=== PATIENT | male | born 2005 | race Caucasian/White ===

== ENCOUNTER 2025-08-06 11:34 | Inpatient (IN) ==
[2025-08-06 13:46] LABS: Appearance Urine Clear (Clear); Glucose Urine UA Negative (Negative)
--- NOTE | 2025-08-06 13:57 | Emergency Department Note ---
Impression & Plan Influenza, Adrenal insufficiency, Acute viral bronchiolitis ED Provider Note NAME: ALEJANDRO GORDILLO AGE: 19 SEX: M : 2005 ARRIVES VIA: Walk-In INFORMANT: Patient ED PROVIDER(S): Jaren Jackman MD CHIEF COMPLAINT: Cough, low oxygen, flu, referred PLAN: Disposition: Admit MEDICAL DECISION MAKING: The patient is a pleasant 19-year-old gentleman, [employer] college student, with past medical history of adrenal insufficiency on chronic hydrocortisone, history of IgA deficiency, POTS who presents to the emergency department via walk-in referred by urgent care after he was seen for reassessment and found to have low oxygen with saturation 91% on room air in the setting of being diagnosed with influenza A approximately a week ago. The patient had been on Tamiflu and was seen in the emergency department on 08/02 for intractable nausea and vomiting. The patient was stabilized and has continued his stress dose steroids. However symptoms have not been improving. He reports nausea but has not had returned of vomiting. He denies diarrhea. He denies chest pain. He reports persistent postnasal drip. Of note, the patient did arrive to emergency department during time of high volume, acuity and prolonged emergency department waiting times. Critical pathways initiated. On evaluation the patient is uncomfortable but no distress, afebrile stable vital signs. O2 saturation 93% on room air. He appears clinically dry. Exhibits boggy nasal turbinates. He exhibits injection without edema the posterior pharynx. No exudates. Lungs with scant intermittent wheeze and are otherwise clear. Chest x-ray was performed and did not demonstrate evidence of pneumonia. Peribronchial thickening suggestive of viral bronchiolitis or reactive airway disease is noted. WBC 11.2 K with neutrophilia but no left shift, nonspecific. H/H and platelets within limits. Chemistry without metabolic acidosis. LFTs unremarkable. Procalcitonin is not elevated. UA without evidence of infection. Patient was treated with IV fluid hydration with 2 L normal saline. 100 mg of stress dose hydrocortisone also administered. DuoNeb and guaifenesin also provided. Given the persistence of the patient's symptoms with mild improvement in the setting of the patient's immunocompromise status with adrenal insufficiency patient and mother (over the phone) agree with plan for admission for further management. Case was discussed with Lenora Arias [facility], with Dr. Aj, [facility] hospitalist who will evaluate the patient for admission. Further management per admitting team. Triage Nursing notes reviewed and agree them. Prior/external medical records reviewed Vital Signs: reviewed Differential diagnosis: Viral syndrome, otitis, pharyngitis, pneumonia, influenza, meningitis, urinary tract infection, sepsis, bacteremia, as well as other pathologies. ER treatment provided: See below. Diagnostics interpreted by me: Cardiac Monitoring: An order for continuous cardiac monitoring was placed and demonstrated normal sinus rhythm, 69 bpm, no ectopy. Laboratory studies: See below Imaging studies: See below Consultation(s): Case was discussed with Lenora Arias [facility], with Dr. Aj, [facility] hospitalist who will evaluate the patient for admission. HPI: Per MDM. ROS: See above HPI for pertinent positives & negatives. A total of 10 systems reviewed and were otherwise negative. VITALS:See Below PHYSICAL EXAMINATION: GENERAL: Awake, alert, uncomfortable-appearing, in no distress HENT: Normocephalic, atraumatic. Boggy nasal turbinates. Oropharynx with injection without edema of the posterior pharynx. No exudates. Dry mucous membranes. EYES: Normal conjunctiva. Sclera non-icteric. NECK: Supple. No nuchal rigidity. FROM. No JVD. RESPIRATORY: Intermittent wheeze bilaterally and otherwise clear to auscultation. CARDIAC: Regular rate, normal rhythm. Extremities warm and well perfused. Pulses equal. ABDOMEN: Soft, non-distended. No tenderness to palpation. No rebound or guarding. No masses. MUSCULOSKELETAL: Chest examination reveals no tenderness. The back is symmetrical on inspection without obvious abnormality. There is no CVA tenderness to palpation. No joint edema. LOWER EXTREMITIES: Calves are equal size bilaterally and non-tender. No edema. No discoloration. NEURO: Normal sensorium. No sensory or motor deficits noted. SKIN: No rash or jaundice noted. Jaren Jackman MD Past Med/Surg History Problem List (Updated 08/06/25 @ 22:24 by Jaren Jackman MD) Acute viral bronchiolitis (Acute) Adrenal insufficiency (Acute) Post-tussive emesis (Acute) Influenza (Acute) Medical History IgA deficiency Social History Smoking Status: Never smoker Hx Alcohol Use: No Hx Substance Use: No Preferred Language: [place] Communication Ability: Effective Machine Installer Required: No Beliefs That Will Affect Care: None Current Living Situation: Alone Current Living Situation Comment: julien, [employer] student Other Information That Helps Us Care for You: No Feels Safe at Home: Yes Assistive Devices: Glasses Allergies Allergies Allergy/AdvReac Type Severity Reaction Status Date / Time metoclopramide [From Reglan] AdvReac Intermediate AGGRESSIVE Verified 08/03/25 00:21 sulfamethoxazole AdvReac Intermediate Vomiting Verified 08/03/25 00:21 [From Bactrim] trimethoprim [From Bactrim] AdvReac Intermediate Vomiting Verified 08/03/25 00:21 Home Meds Home Medications Medication Instructions Recorded Confirmed Ketotifen Capsule 1 mg PO DIRECTED 08/03/25 08/06/25 Vessel Health Guard 1 tab PO 2XWK 08/03/25 08/06/25 biotin 5,000 mcg disintegrating 5,000 mcg PO QDL 08/03/25 08/06/25 tablet cholecalciferol (vitamin D3) 125 125 mcg PO 3XWK 08/03/25 08/06/25 mcg (5,000 unit) tablet (Vitamin D3) finasteride 1 mg tablet 1 mg PO HS 08/03/25 08/06/25 fluvoxamine 100 mg tablet 100 mg PO QAM 08/03/25 08/06/25 hydrocortisone 10 mg tablet 0 mg PO DIRECTED 08/03/25 08/06/25 hydrocortisone 20 mg tablet 30 mg PO Q8H PRN STRESS DOSE 08/03/25 08/06/25 hydrocortisone sod succinate 100 100 mg IM DAILY PRN IF UNABLE TO 08/03/25 08/06/25 mg solution for injection TAKE STRESS DOSE, GO TO ER (Solu-Cortef) iron,carbonyl 65 mg-vitamin C 125 1 tab PO 3XWK 08/03/25 08/06/25 mg tablet,delayed release (Vitron-C) ivabradine 5 mg tablet 5 mg PO QAM 08/03/25 08/06/25 methylphenidate HCl 20 mg tablet 15 mg PO BID 08/03/25 08/06/25 ondansetron 8 mg disintegrating 8 mg PO DIRECTED PRN 08/03/25 08/06/25 tablet NAUSEA/VOMITING oseltamivir 75 mg capsule 75 mg PO BID 08/03/25 08/06/25 oxymetazoline 0.05 % nasal spray 2 - 4 spray intranasal DIRECTED 08/03/25 08/06/25 (Afrin (oxymetazoline)) PRN NOSE BLEEDS testosterone enanthate 100 mg/0.5 100 mg subcut WK 08/03/25 08/06/25 mL subcutaneous auto-injector (Xyosted) trazodone 50 mg tablet 50 mg PO HS PRN Sleep 08/03/25 08/06/25 famotidine 20 mg tablet 20 mg PO BID 08/06/25 08/06/25 Previous Rx's Medication Instructions Recorded hydrocodone-homatropine 5 mg-1.5 5 ml PO Q6H PRN cough #200 mL 08/03/25 mg/5 mL (5 mL) oral solution (Hycodan) Results & Data (ED) Vital Signs Vital Signs - 24 hr 08/06/25 11:43 08/06/25 12:50 08/06/25 12:50 Temperature 36.7 C Temperature Source Oral Pulse Rate 69 Pulse Rate [Right Finger] Pulse Rate from SpO2 Sensor Pulse Rhythm [Right Finger] Pulse Strength [Right Finger] Respiratory Rate 18 Respiratory Effort / Characteristics Respiratory Depth Normal Respiratory Pattern Blood Pressure 131/78 152/84 H 152/84 H Blood Pressure [Right Arm] Blood Pressure Mean 95 103 103 Blood Pressure Mean [Right Arm] Blood Pressure Position [Right Arm] Pulse Oximetry 93 Oxygen Delivery Method Room Air Sepsis Recent Fever Within 48 Hours No Sepsis New/Unexplained Change in Mental Status No Sepsis Action Taken by Nursing No Action Required 08/06/25 12:54 08/06/25 13:09 08/06/25 13:15 Temperature Temperature Source Pulse Rate 58 L 53 L 54 L Pulse Rate [Right Finger] Pulse Rate from SpO2 Sensor 59 L 52 L 54 L Pulse Rhythm [Right Finger] Pulse Strength [Right Finger] Respiratory Rate 16 22 22 Respiratory Effort / Characteristics Respiratory Depth Respiratory Pattern Blood Pressure Blood Pressure [Right Arm] Blood Pressure Mean Blood Pressure Mean [Right Arm] Blood Pressure Position [Right Arm] Pulse Oximetry 92 94 94 Oxygen Delivery Method Sepsis Recent Fever Within 48 Hours Sepsis New/Unexplained Change in Mental Status Sepsis Action Taken by Nursing 08/06/25 13:21 08/06/25 13:22 08/06/25 13:30 Temperature Temperature Source Pulse Rate 57 L Pulse Rate [Right Finger] 54 L Pulse Rate from SpO2 Sensor 56 L Pulse Rhythm [Right Finger] Regular Pulse Strength [Right Finger] Normal Respiratory Rate 19 19 Respiratory Effort / Characteristics Non-Labored Spontaneous Respiratory Depth Normal Respiratory Pattern Regular Blood Pressure 164/92 H Blood Pressure [Right Arm] 152/84 H Blood Pressure Mean 107 Blood Pressure Mean [Right Arm] 106 Blood Pressure Position [Right Arm] Lying Pulse Oximetry 94 93 Oxygen Delivery Method Room Air Sepsis Recent Fever Within 48 Hours Sepsis New/Unexplained Change in Mental Status Sepsis Action Taken by Nursing 08/06/25 13:30 08/06/25 13:30 08/06/25 13:30 Temperature Temperature Source Pulse Rate 54 L Pulse Rate [Right Finger] Pulse Rate from SpO2 Sensor 53 L Pulse Rhythm [Right Finger] Pulse Strength [Right Finger] Respiratory Rate 17 Respiratory Effort / Characteristics Respiratory Depth Respiratory Pattern Blood Pressure 164/92 H 164/92 H Blood Pressure [Right Arm] Blood Pressure Mean 107 107 Blood Pressure Mean [Right Arm] Blood Pressure Position [Right Arm] Pulse Oximetry 94 Oxygen Delivery Method Sepsis Recent Fever Within 48 Hours Sepsis New/Unexplained Change in Mental Status Sepsis Action Taken by Nursing 08/06/25 14:00 08/06/25 14:00 08/06/25 14:12 Temperature Temperature Source Pulse Rate 55 L 58 L Pulse Rate [Right Finger] Pulse Rate from SpO2 Sensor 55 L 59 L Pulse Rhythm [Right Finger] Pulse Strength [Right Finger] Respiratory Rate 21 16 Respiratory Effort / Characteristics Respiratory Depth Respiratory Pattern Blood Pressure 157/92 H Blood Pressure [Right Arm] Blood Pressure Mean 119 Blood Pressure Mean [Right Arm] Blood Pressure Position [Right Arm] Pulse Oximetry 95 96 Oxygen Delivery Method Sepsis Recent Fever Within 48 Hours Sepsis New/Unexplained Change in Mental Status Sepsis Action Taken by Nursing 08/06/25 14:18 08/06/25 14:21 08/06/25 14:30 Temperature Temperature Source Pulse Rate 54 L 67 Pulse Rate [Right Finger] Pulse Rate from SpO2 Sensor 54 L Pulse Rhythm [Right Finger] Pulse Strength [Right Finger] Respiratory Rate 19 Respiratory Effort / Characteristics Respiratory Depth Respiratory Pattern Blood Pressure 168/83 H Blood Pressure [Right Arm] Blood Pressure Mean 112 Blood Pressure Mean [Right Arm] Blood Pressure Position [Right Arm] Pulse Oximetry 100 Oxygen Delivery Method Sepsis Recent Fever Within 48 Hours Sepsis New/Unexplained Change in Mental Status Sepsis Action Taken by Nursing 08/06/25 14:30 08/06/25 14:33 08/06/25 15:00 Temperature Temperature Source Pulse Rate 80 Pulse Rate [Right Finger] 55 L Pulse Rate from SpO2 Sensor 74 Pulse Rhythm [Right Finger] Regular Pulse Strength [Right Finger] Normal Respiratory Rate 20 20 Respiratory Effort / Characteristics Non-Labored Spontaneous Respiratory Depth Normal Respiratory Pattern Regular Blood Pressure 168/83 H Blood Pressure [Right Arm] 177/95 H Blood Pressure Mean 112 Blood Pressure Mean [Right Arm] 122 Blood Pressure Position [Right Arm] Lying Pulse Oximetry 95 95 Oxygen Delivery Method Room Air Sepsis Recent Fever Within 48 Hours Sepsis New/Unexplained Change in Mental Status Sepsis Action Taken by Nursing 08/06/25 15:09 08/06/25 15:21 08/06/25 15:30 Temperature Temperature Source Pulse Rate Pulse Rate [Right Finger] Pulse Rate from SpO2 Sensor 65 74 54 L Pulse Rhythm [Right Finger] Pulse Strength [Right Finger] Respiratory Rate Respiratory Effort / Characteristics Respiratory Depth Respiratory Pattern Blood Pressure Blood Pressure [Right Arm] Blood Pressure Mean Blood Pressure Mean [Right Arm] Blood Pressure Position [Right Arm] Pulse Oximetry 98 96 95 Oxygen Delivery Method Sepsis Recent Fever Within 48 Hours Sepsis New/Unexplained Change in Mental Status Sepsis Action Taken by Nursing 08/06/25 15:30 08/06/25 15:30 08/06/25 15:30 Temperature Temperature Source Pulse Rate Pulse Rate [Right Finger] Pulse Rate from SpO2 Sensor Pulse Rhythm [Right Finger] Pulse Strength [Right Finger] Respiratory Rate Respiratory Effort / Characteristics Respiratory Depth Respiratory Pattern Blood Pressure 177/95 H 177/95 H 177/95 H Blood Pressure [Right Arm] Blood Pressure Mean 111 111 111 Blood Pressure Mean [Right Arm] Blood Pressure Position [Right Arm] Pulse Oximetry Oxygen Delivery Method Sepsis Recent Fever Within 48 Hours Sepsis New/Unexplained Change in Mental Status Sepsis Action Taken by Nursing 08/06/25 15:30 08/06/25 15:45 08/06/25 16:08 Temperature Temperature Source Pulse Rate Pulse Rate [Right Finger] 54 L Pulse Rate from SpO2 Sensor 55 L Pulse Rhythm [Right Finger] Pulse Strength [Right Finger] Respiratory Rate 16 Respiratory Effort / Characteristics Non-Labored Spontaneous Respiratory Depth Normal Respiratory Pattern Blood Pressure 177/95 H Blood Pressure [Right Arm] 160/82 H Blood Pressure Mean 111 Blood Pressure Mean [Right Arm] 108 Blood Pressure Position [Right Arm] Pulse Oximetry 96 Oxygen Delivery Method Sepsis Recent Fever Within 48 Hours Sepsis New/Unexplained Change in Mental Status Sepsis Action Taken by Nursing Laboratory Data Attestation: I reviewed the patient's lab results. 08/06/25 13:40 08/06/25 13:40 Lab Results 08/06/25 08/06/25 Range/Units 13:00 13:40 WBC 11.25 H (4.8-10.8) K/ul RBC 5.34 (4.70-6.10) M/uL Hgb 14.7 (14.0-18.0) g/dl Hct 44.2 (42.0-52.0) % MCV 82.8 (80.0-100.0) fL MCH 27.5 (25.0-34.0) pg MCHC 33.3 (32.0-36.0) g/dL RDW Std Deviation 38.3 (36.4-46.3) fL RDW Coeff of Josué 12.8 (11.5-14.5) % Plt Count 237 (130-400) K/uL MPV 11.1 (9.4-12.4) fL Immature Gran % (Auto) 1.4 % Neut % (Auto) 74.3 % Lymph % (Auto) 14.1 % [place] % (Auto) 9.9 % Eos % (Auto) 0.1 % Baso % (Auto) 0.2 % Neut # (Auto) 8.36 H (1.40-6.50) K/uL Lymph # (Auto) 1.59 (1.20-3.40) K/uL [place] # (Auto) 1.11 H (0.11-0.59) K/uL Eos # (Auto) 0.01 (0.00-0.50) K/uL Baso # (Auto) 0.02 (0.00-0.20) K/uL Immature Gran # (Auto) 0.16 (0.01-0.20) K/uL Sodium 141 (136-145) mmol/L Potassium 4.2 (3.5-5.1) mmol/L Chloride 104 (98-107) mmol/L Carbon Dioxide 31 (21-32) mmol/L Anion Gap 6 (3-11) BUN 9 (6-23) mg/dl Creatinine 0.95 (0.6-1.4) mg/dl Est Cr Clr Drug Dosing 157.6 ml/min eGFR 118.25 BUN/Creatinine Ratio 9.5 L (10-20) Glucose 100 H (70-99(Fasting)) mg/dl Calcium 9.4 (8.6-10.3) mg/dl Total Bilirubin 0.5 (0.2-1.0) mg/dl AST 12 L (13-39) U/L ALT 11 (7-52) U/L Alkaline Phosphatase 54 (34-104) U/L Total Protein 7.3 (6.0-8.3) gm/dl Albumin 4.3 (3.4-5.0) gm/dl Globulin 3.0 (2.5-4.0) gm/dl Albumin/Globulin Ratio 1.4 (0.9-2) Procalcitonin 0.03 (0-0.5) ng/ml Urine Color Yellow Urine Appearance Clear (Clear) Urine pH 8.0 H (4.5-7.5) Ur Specific [place] 1.006 (1.000-1.030) Urine Protein Negative (Negative) Urine Glucose (UA) Negative (Negative) Urine Ketones Negative (Negative) Urine Blood Negative (Negative) Urine Nitrite Negative (Negative) Urine Bilirubin Negative (Negative) Urine Urobilinogen Negative (Negative) Ur Leukocyte Esterase Negative (Negative) Urine Comment Administered Medications Albuterol (Albut/Ipratrop 3mg/0.5mg Neb 3 Ml Vial) 3 ml NEB Q4R [facility]; Protocol Stop: 09/05/25 20:07 Last Admin: 08/06/25 21:41 Dose: 3 ml Documented By: LEN Ascorbic Acid (Ascorbic Acid 500 Mg Tab) 250 mg PO MoWeFr@2100 [facility] Stop: 09/05/25 20:59 Last Admin: 08/06/25 21:28 Dose: 250 mg Documented By: ATS Benzonatate (Benzonatate 100 Mg Capsule) 100 mg PO TID [facility] Stop: 09/05/25 20:59 Last Admin: 08/06/25 21:27 Dose: 100 mg Documented By: ATS Famotidine (Famotidine 20 Mg Tab) 20 mg PO BID [facility] Stop: 09/05/25 20:59 Last Admin: 08/06/25 21:27 Dose: 20 mg Documented By: ATS Ferrous Sulfate (Ferrous Sulfate 325 Mg Tab) 325 mg PO MoWeFr@2100 [facility] Stop: 09/05/25 20:59 Last Admin: 08/06/25 21:28 Dose: 325 mg Documented By: VASYL Guaifenesin (Guaifenesin 600 Mg Tabcr) 1,200 mg PO Q12 [facility] Stop: 09/05/25 20:59 Last Admin: 08/06/25 21:28 Dose: 1,200 mg Documented By: ATS Sodium Chloride (Nss) 1,000 mls @ 125 mls/hr IV .Q8H MAYANK Stop: 08/07/25 12:07 Last Admin: 08/06/25 20:30 Dose: 125 mls/hr Documented By: VASYL Hydrocortisone Sodium (Succinate 50 mg/ Syringe) 1 mls @ 4 mls/min IV Q6H MAYANK Stop: 09/05/25 20:14 Last Admin: 08/06/25 21:27 Dose: 4 mls/min Documented By: VASYL Finasteride 1 Mg: Non-Formulary Patient's Own Med 1 each PO HS MAYANK Stop: 09/05/25 20:59 Last Admin: 08/06/25 21:30 Dose: 1 mg Documented By: VASYL Ketotifen: Non- Formulary Patient's Own Med 2 each PO HS MAYANK Stop: 09/05/25 20:59 Last Admin: 08/06/25 21:29 Dose: 2 mg Documented By: VASYL Trazodone HCl (Trazodone Hcl 50 Mg Tab) 50 mg PO HS PRN PRN Reason: Sleep Stop: 09/05/25 16:41 Last Admin: 08/06/25 21:32 Dose: 50 mg Documented By: VASYL Vitamin D (Cholecalciferol 125 Mcg (5,000 Units) Tab) 125 mcg PO MoWeFr@1130 [facility]ANK Stop: 09/05/25 16:44 Last Admin: 08/06/25 18:06 Dose: 125 mcg Documented By: mls Discontinued Medications Albuterol (Albut/Ipratrop 3mg/0.5mg Neb 3 Ml Vial) 3 ml NEB NOW STA; Protocol Stop: 08/06/25 13:56 Last Admin: 08/06/25 14:08 Dose: 3 ml Documented By: jose Guaifenesin (Guaifenesin 600 Mg Tabcr) 1,200 mg PO NOW STA Stop: 08/06/25 13:54 Last Admin: 08/06/25 14:07 Dose: 1,200 mg Documented By: jose Hydrocortisone Sodium Succinate (Hydrocortisone Sod Succinate 100 Mg/2 Ml Vial) 100 mg IV NOW STA Stop: 08/06/25 13:56 Last Admin: 08/06/25 14:07 Dose: 100 mg Documented By: jose Sodium Chloride (Nss) 1,000 mls @ 999 mls/hr IV .Q1H1M MAYANK Stop: 08/06/25 16:00 Last Infusion: 08/06/25 16:17 Dose: Infused Documented By: river Admin: 08/06/25 15:13 Dose: 999 mls/hr Documented By: jose Infusion: 08/06/25 15:09 Dose: Infused Documented By: jose Admin: 08/06/25 14:08 Dose: 999 mls/hr Documented By: jose Acetaminophen (Ofirmev) 1,000 mg in 100 mls @ 400 mls/hr IV NOW STA Stop: 08/06/25 14:07 Last Infusion: 08/06/25 14:30 Dose: Infused Documented By: jose Admin: 08/06/25 14:07 Dose: 400 mls/hr Documented By: jose Ketorolac Tromethamine (Ketorolac Tromethamine 15 Mg/Ml Vial) 15 mg IV NOW STA Stop: 08/06/25 13:54 Last Admin: 08/06/25 14:07 Dose: 15 mg Documented By: jose Sodium Chloride (Sodium Chloride 0.65% Na Soln 45 Ml ([place])) 2 sprays NA NOW ONE Stop: 08/06/25 13:54 Last Admin: 08/06/25 14:07 Dose: 2 sprays Documented By: jose Imaging Data Radiologist's Impression: Chest X-Ray 08/06/25 12:31 XR chest 2V PA/lateral CLINICAL HISTORY: Influenza, hypoxemia COMPARISON STUDY: 08/03/2025 FINDINGS: Heart size and pulmonary vasculature are normal. No consolidation or pleural effusion. No pneumothorax. Stable mild scoliosis. There is mild peribronchial thickening. IMPRESSION: 1. No pneumonia seen. 2. Peribronchial thickening can be seen with viral bronchiolitis or reactive airway disease. ACT 112: Negative or not required by law. Electronically signed by: Devon Jiménez M.D. 08/06/2025 2:55 PM Discharge Plan Visit Data Chief Complaint: Flu Like Symptoms Stated Complaint: LOW O2, FLU X8 DAYS, COUGH, REF BY URGENT CARE ED Provider: Jaren Jackman Discharge Problem: Influenza, Adrenal insufficiency, Acute viral bronchiolitis Patient Disposition: Admitted As Inpatient Condition: Fair Discharge Instructions Interventions: ED Discharge Assessment Last Done: 08/06/25 19:46
[2025-08-06] MEDS: SODIUM CHLORIDE 0.65% NA SOLN 45 ML (OCEAN) ONE (14:07)
[2025-08-06] MEDS: HYDROCORTISONE SOD SUCCINATE 100 MG/2 ML VIAL IV STA (14:07)
[2025-08-06] MEDS: guaiFENesin 600 MG TABCR PO STA (14:07)
[2025-08-06] MEDS: KETOROLAC TROMETHAMINE 15 MG/ML VIAL IV STA (14:07)
[2025-08-06] MEDS: ACETAMINOPHEN 1,000 MG/100 ML VIAL IV STA (14:07)
[2025-08-06] MEDS: ALBUT/IPRATROP 3MG/0.5MG NEB 3 ML VIAL NEB STA (14:08)
[2025-08-06] MEDS: SODIUM CHLORIDE 0.9% 1,000 ML IV SCH ×2 (14:08→20:30)
[2025-08-06 14:19] LABS: Alanine Aminotransferase 11.0 U/L (7-52); Albumin Globulin Ratio 1.4 (0.9-2); Albumin Level 4.3 gm/dl (3.4-5.0); Alkaline Phosphatase 54.0 U/L (34-104); Anion Gap 6.0 (3-11); Bilirubin,Total 0.5 mg/dl (0.2-1.0); Blood Urea Nitrogen 9.0 mg/dl (6-23); Calcium 9.4 mg/dl (8.6-10.3); Carbon Dioxide 31.0 mmol/L (21-32); Chloride 104.0 mmol/L (98-107); Creatinine Clr Calc Pharmacy 157.6 ml/min; Globulin 3.0 gm/dl (2.5-4.0); Glucose 100.0 mg/dl (70-99(Fasting)); Hematocrit (blood only) 44.2 % (42.0-52.0); Hemoglobin 14.7 g/dl (14.0-18.0); Immature Granulocytes # (auto) 0.16 K/uL (0.01-0.20); Immature Granulocytes % (auto) 1.4 %; Mean Corpuscular Hemoglobin 27.5 pg (25.0-34.0); Mean Corpuscular Volume 82.8 fL (80.0-100.0); Platelet Count 237 K/uL (130-400); Potassium 4.2 mmol/L (3.5-5.1); RDW Standard Deviation 38.3 fL (36.4-46.3); Red Blood Count 5.34 M/uL (4.70-6.10); Sodium 141.0 mmol/L (136-145); Total Protein 7.3 gm/dl (6.0-8.3); White Blood Count 11.25 K/ul (4.8-10.8)
--- NOTE | 2025-08-06 14:56 | XRay Report ---
XR chest 2V PA/lateral CLINICAL HISTORY: Influenza, hypoxemia COMPARISON STUDY: 08/03/2025 FINDINGS: Heart size and pulmonary vasculature are normal. No consolidation or pleural effusion. No p neumothorax. Stable mild scoliosis. There is mild peribronchial thickening. IMPRESSION: 1. No pneumonia seen. 2. Peribronchial thickening can be seen with viral bronchiolitis or reactive airway disease. ACT 112: Negative or not required by law. Electronically signed by: Devon Jiménez M.D. 08/06/2025 2:55 PM
--- NOTE | 2025-08-06 16:09 | History & Physical Report ---
Date of Service August 06, 2025 Assessment & Plan (1) Influenza: (2) Adrenal insufficiency: Plan Hernan is a pleasant 19-year-old male with past medical history of recently diagnosed influenza A, adrenal insufficiency, mild IgA deficiency, POTS, mast cell activation syndrome, Klinefelter syndrome, anxiety, depression, and mild cerebral palsy affecting his left foot/ankle. He has had an ongoing illness x 3-4 weeksinitially sinusitis and completed Augmentin course. A few days after finishing his antibiotic, he developed flulike symptoms. Last week he tested positive for influenza A at urgent care and has since finished his course of Tamiflu. He presented to the ED on 08/03 with cough and vomiting and was discharged home with a prescription of Hycodan cough syrup which has significantly helped his cough and allowed him to get some sleep. He return to urgent care on day of admission for ongoing symptoms and was referred back to the ED for low normal oxygen saturations. Given the length of his illness and risk of developing an adrenal crisis, patient was admitted for further supportive care. #Influenza A - tested positive at urgent care about 1 week BLUR[employer] WR[employer], completed course of Tamiflu - CXR on admission with peribronchial thickening consistent with viral bronchiolitis or reactive airway disease. No pneumonia seen - Supportive care with Tylenol as needed for mild pain/fever, Mucinex 1200 mg twice daily, Hycodan 5 mL Q6h PRN cough - DuoNebs Q4R - IV fluid with NSS at maintenance rate x 2 L #Adrenal Insufficiency - hemodynamically stable, no AMS, no hypotension, no recent vomiting, electrolyte and glucose WNL - S/p hydrocortisone 100 mg IV bolus and 1 L NSS bolus in ED - Continue with hydrocortisone 50 mg IV Q6h for now. Can taper to 2-3 x usual oral dose (hydrocortisone 17.5 mg QAM and 7.5 mg in afternoon), then return to maintenance over 2-3 days - Continue with NSS at maintenance rate x 2 L #Anxiety/depressioncontinue fluvoxamine 100 mg daily #POTScontinue Ivabradine 5 mg daily, methylphenidate 15 mg BID #Vitamin D deficiencycontinue cholecalciferol 120 mcg MWF #Iron deficiencycontinue ferrous sulfate 325 mg MWF #Mast cell activation syndromecontinue ketotifen 1 mg QAM and 2 mg QHS, Pepcid BID #Klinefelter syndromecontinue weekly testosterone injections outpatient on Sundays VTE PPx: low risk, ambulation Dispo: Admit to med/surg Reviewed prior records Updated mother at bedside on admission History of Present Illness Chief Complaint: Flulike symptoms Primary Care Provider: Romel Zhou MD Hernan is a pleasant 19-year-old male with past medical history of recently diagnosed influenza, adrenal insufficiency, IgA deficiency, POTS, mast cell activation syndrome, Klinefelter syndrome, anxiety, depression, and mild cerebral palsy affecting his left foot/ankle. He presented from home with persistent flulike symptoms. At the time of my exam, the patient was lying in bed in no acute distress with his mom present in the room. History is obtained from both patient and his mother. He has had an ongoing illness x 3-4 weeks. Originally started with sinusitis and he completed a course of Augmentin. A few days after finishing this antibiotic, he developed flulike symptoms. He tested positive for influenza A at urgent care last week and has since finished his c ourse of Tamiflu. He presented to the ED on 08/03 with cough and vomiting and was discharged home with recommendation to continue his stress dose steroids, course of Tamiflu, and was prescribed Hycodan to prevent posttussive emesis. Since being discharged from the ED, he has not had any further fever/chills/vomiting. He has been sleeping a lot and reports an improvement with the Hycodan cough syrup - finally has been able to get some sleep. He has ongoing generalized malaise, sore throat, and mild intermittent nausea. His cough was initially dry, but is now intermittently productive with white/yellow sputum. He denies any dyspnea, chest pain, intercostal tenderness, diarrhea, urinary symptoms, joint/body aches. He returned to urgent care today given ongoing symptoms. He had a low normal oxygen saturation of 90% with ambulation and 91-92% at rest so he was referred to the ED. Vitals on admission significant for hypertension with BP 177/95 and mild bradycardia with HR 55; vitals otherwise stable. Labs on admission are significant for mild leukocytosis of 11.25 with neutrophil predominance. Procalcitonin negative at 0.03. Hemoglobin WNL. Electrolytes WNL. Renal function WNL. Liver enzymes WNL. UA negative. CXR on admission reveals peribronchial thickening consistent with viral bronchiolitis or reactive airway disease. No pneumonia seen. We discussed code status, patient wishes to be a full code. Allergies Allergy/AdvReac Type Severity Reaction Status Date / Time metoclopramide [From Reglan] AdvReac Intermediate AGGRESSIVE Verified 08/03/25 00:21 sulfamethoxazole AdvReac Intermediate Vomiting Verified 08/03/25 00:21 [From Bactrim] trimethoprim [From Bactrim] AdvReac Intermediate Vomiting Verified 08/03/25 00:21 Home Medications Medication Instructions Recorded Confirmed Type Ketotifen Capsule 1 mg PO DIRECTED 08/03/25 08/06/25 History Vessel Health Guard 1 tab PO 2XWK 08/03/25 08/06/25 History biotin 5,000 mcg disintegrating 5,000 mcg PO QDL 08/03/25 08/06/25 History tablet cholecalciferol (vitamin D3) 125 125 mcg PO 3XWK 08/03/25 08/06/25 History mcg (5,000 unit) tablet (Vitamin D3) finasteride 1 mg tablet 1 mg PO HS 08/03/25 08/06/25 History fluvoxamine 100 mg tablet 100 mg PO QAM 08/03/25 08/06/25 History hydrocodone-homatropine 5 mg-1.5 5 ml PO Q6H PRN cough #200 mL 08/03/25 08/06/25 Rx mg/5 mL (5 mL) oral solution (Hycodan) hydrocortisone 10 mg tablet 0 mg PO DIRECTED 08/03/25 08/06/25 History hydrocortisone 20 mg tablet 30 mg PO Q8H PRN STRESS DOSE 08/03/25 08/06/25 History hydrocortisone sod succinate 100 100 mg IM DAILY PRN IF UNABLE TO 08/03/25 08/06/25 History mg solution for injection TAKE STRESS DOSE, GO TO ER (Solu-Cortef) iron,carbonyl 65 mg-vitamin C 125 1 tab PO 3XWK 08/03/25 08/06/25 History mg tablet,delayed release (Vitron-C) ivabradine 5 mg tablet 5 mg PO QAM 08/03/25 08/06/25 History methylphenidate HCl 20 mg tablet 15 mg PO BID 08/03/25 08/06/25 History ondansetron 8 mg disintegrating 8 mg PO DIRECTED PRN 08/03/25 08/06/25 History tablet NAUSEA/VOMITING oseltamivir 75 mg capsule 75 mg PO BID 08/03/25 08/06/25 History oxymetazoline 0.05 % nasal spray 2 - 4 spray intranasal DIRECTED 08/03/25 08/06/25 History (Afrin (oxymetazoline)) PRN NOSE BLEEDS testosterone enanthate 100 mg/0.5 100 mg subcut WK 08/03/25 08/06/25 History mL subcutaneous auto-injector (Xyosted) trazodone 50 mg tablet 50 mg PO HS PRN Sleep 08/03/25 08/06/25 History famotidine 20 mg tablet 20 mg PO BID 08/06/25 08/06/25 History Past Med/Surg History Problem List (Updated 08/06/25 @ 15:57 by Lenora Arias PA-C) Adrenal insufficiency Post-tussive emesis (Acute) Influenza (Acute) Social History Smoking Status: Never smoker Preferred Language: [place]an Feels Safe at Home: Yes Review of Systems Review of Systems: All systems reviewed & are unremarkable except as noted in HPI & below Constitutional: + fatigue and + malaise Respiratory: + cough, + sputum production and + probl em reported (sore throat) Physical Exam Physical Exam: General: No acute distress, nondiaphoretic, well-developed, well-nourished. Appears fatigued. Skin: Warm, dry. No rashes or peripheral edema noted. HEENT: PERRLA. Moist mucous membranes. Oropharynx nonerythematous. No tonsillar exudates. Cardiac: Regular rate and rhythm without murmurs gallops or rubs. Pulm: Mild bibasilar rhonchi with faint expiratory wheeze. Clear to auscultation bilaterally in upper lobes. Normal respiratory effort. 96% on room air. Abdominal: Soft, nontender, nondistended. Bowel sounds present. Neuro: A&O x3. No focal neurological deficits. Results & Data Results & Data Vital Signs (Past 12 Hours) Vital Signs Temp Pulse Pulse Resp BP BP Pulse Ox 08/06/25 15:00 55 L 20 177/95 H 95 08/06/25 14:21 67 08/06/25 13:22 54 L 19 152/84 H 93 09/26/25 11:43 98.1 F 69 18 131/78 93 O2 Del Method 08/06/25 15:00 Room Air 08/06/25 14:21 08/06/25 13:22 Room Air 08/06/25 11:43 Room Air Laboratory Results Reviewed CBC with differential Reviewed CMP, chemistries Reviewed UA Diagnostic Findings Reviewed CXR PG Care Time/CCT Total # of Minutes Spent Total Time Spent with Patient: Total time spent is greater than 50% in coordination of care (as documented) at patient's floor/unit and/or counseling patient: Coding Level of Care Code 12386 INT INP/OBS CARE 3/75MIN Diagnoses Influenza J11.1 Adrenal insufficiency E27.40
[2025-08-06] MEDS: CHOLECALCIFEROL 125 MCG (5,000 UNITS) TAB PO SCH (18:06)
[2025-08-06] MEDS ORDERED: MELATONIN 3 MG TAB PO PRN (20:08)
[2025-08-06] MEDS ORDERED: ALUMINUM/MAGNESIUM SUSP 30 ML UDC PO PRN (20:08)
[2025-08-06] MEDS ORDERED: HYDROCORTISONE SOD SUCCINATE 100 MG/2 ML VIAL IV SCH (20:08)
[2025-08-06] MEDS ORDERED: POLYETHYLENE (MIRALAX) 17 GM PACK PO PRN (20:08)
[2025-08-06] MEDS ORDERED: ONDANSETRON INJ 2 MG/ML 2 ML VIAL IV PRN (20:08)
[2025-08-06] MEDS ORDERED: COUGH DROP (SUGAR FREE) LOZ 24 LOZ/1 BOX BUCCAL PRN (20:08)
[2025-08-06] MEDS: HYDROCORTISONE SOD 50 MG in SYRINGE 0 ML IV SCH (21:27)
[2025-08-06] MEDS: FAMOTIDINE 20 MG TAB PO SCH (21:27)
[2025-08-06] MEDS: BENZONATATE 100 MG CAPSULE PO SCH (21:27)
[2025-08-06] MEDS: ASCORBIC ACID 500 MG TAB PO SCH (21:28)
[2025-08-06] MEDS: guaiFENesin 600 MG TABCR PO SCH (21:28)
[2025-08-06] MEDS: FERROUS SULFATE 325 MG TAB PO SCH (21:28)
[2025-08-06] MEDS: KETOTIFEN PO SCH (21:29)
[2025-08-06] MEDS: FINASTERIDE 1 MG PO SCH (21:30)
[2025-08-06] MEDS: ALBUT/IPRATROP 3MG/0.5MG NEB 3 ML VIAL NEB SCH (21:41)
[2025-08-07 00:53] LABS: Influenza A virus by PCR Positive (Neg); Influenza B virus by PCR Negative (Neg); SARS CoV2 RNA(COVID-19) Ceph NEGATIVE (Negative)
[2025-08-07] MEDS ORDERED: Nursing to Pharmacy Communication SCH (06:30)
[2025-08-07] MEDS ORDERED: METHYLPHENIDATE HCL 5 MG TABLET PO SCH (07:00)
[2025-08-07] MEDS: METHYLPHENIDATE HCL 5 MG TABLET PO SCH (08:09)
[2025-08-07] MEDS: KETOTIFEN PO SCH (08:14)
[2025-08-07] MEDS: ACETAMINOPHEN 325 MG TAB PO PRN (08:15)
[2025-08-07 09:05] LABS: Anion Gap 8.0 (3-11); Blood Urea Nitrogen 9.0 mg/dl (6-23); Calcium 8.8 mg/dl (8.6-10.3); Carbon Dioxide 28.0 mmol/L (21-32); Chloride 105.0 mmol/L (98-107); Creatinine Clr Calc Pharmacy 168.2 ml/min; Glucose 154.0 mg/dl (70-99(Fasting)); Magnesium 1.9 mg/dl (1.7-2.4); Potassium 3.4 mmol/L (3.5-5.1); Sodium 141.0 mmol/L (136-145)
[2025-08-07] MEDS: POTASSIUM CHLORIDE CRTAB 20 MEQ TABCR PO SCH (10:12)
[2025-08-07 10:56] LABS: EBV Nuclear Antigen IgG Ab Negative; EBV Nuclear Antigen IgG Quant < 3.0 U/mL (< 18.0)
[2025-08-07 10:57] LABS: EBV Early Antigen IgG Ab Negative (Negative); EBV Early Antigen IgG Quant < 5.0 U/mL (< 9.0)
[2025-08-07 10:58] LABS: EBV IgM Antibody Negative; EBV IgM Quant < 10.0 U/mL (< 36.0)
[2025-08-07 10:59] LABS: EBV IgG Antibody Negative; EBV IgG Quant < 10.0 U/mL (< 18.0)
[2025-08-07] MEDS: VITAMIN B COMPLEX TAB PO SCH (13:48)
--- NOTE | 2025-08-07 15:00 | Hospitalist Progress Note ---
Date of Service August 07, 2025 Assessment & Plan (1) Influenza: (2) Adrenal insufficiency: (3) Acute viral bronchiolitis: (4) IgA deficiency: (5) Sinusitis: (6) Murmur: Plan 19yo male with recently diagnosed influenza A, adrenal insufficiency, mild IgA deficiency, POTS, mast cell activation syndrome, Klinefelter syndrome, anxiety, depression, and mild cerebral palsy affecting his left foot/ankle. Ongoing illness x 3-4 weeksinitially sinusitis and completed Augmentin course. A few days after finishing his antibiotic he developed flulike symptoms. Last week he tested positive for influenza A at urgent care and completed a course of Tamiflu. Presented to the ER yesterday with refractory cough, congestion, and concern for adrenal crisis. #Influenza A with resulting acute bronchitis - - tested + over a week ago; s/p 5 day course of Tamiflu - CXR on admission with peribronchial thickening consistent with viral bronchiolitis or reactive airway disease. No pneumonia seen -repeated a 2-view cxr today - still no complicating bacterial pneumonia - cont Mucinex 1200 mg twice daily, Hycodan 5 mL Q6h PRN cough - DuoNebs Q4R - he does have a h/o exercise-induced asthma and with ongoing severe bronchospasm/wheezing/cough reasonable to continue dedicated steroids for bronchitis -dexamethasone & solumedrol have better anti-inflammatory properties than hydrocortisone thus switch latter to solumedrol 30mg BID and see how he does -the solumedrol will more than suffice provide suitable Rx for his adrenal insufficiency #Adrenal Insufficiency - - S/p hydrocortisone 100 mg IV bolus and 1 L NSS bolus in ED at presentation - received IV hydrocortisone stress doses overnight - changing to IV solumedrol as above - ultimately will transition back to his usual doses of hydrocortisone 17.5 mg QAM and 7.5 mg in afternoon down the line - appears hydrated on exam - and he is drinking fluids - thus, stop IVF #Anxiety/depressioncontinue fluvoxamine 100 mg daily #POTScontinue Ivabradine 5 mg daily #Vitamin D deficiencycontinue cholecalciferol 120 mcg MWF #Iron deficiencycontinue ferrous sulfate 325 mg MWF #Mast cell activation syndromecontinue ketotifen 1 mg QAM and 2 mg QHS, Pepcid BID #Klinefelter syndromecontinue weekly testosterone injections - will need such tomorrow (100mg) #murmur - -output murmur given it is RUSB? -other? -obtain echo #probable sinusitis - -3-4 weeks of severe nasal/sinus congestion -reasonable to re-treat --> omnicef 300mg BID, first dose now -astelin 2 sprays/nostril BID -afrin prn #elevated BP w/o dx of HTN - -nearly all BPs have been high since presentation -given his age worrisome for secondary causes of HTN -could be due to stress of illness, steroids, anxiety, etc as well -[id number] this bears watching -check TSH/Ft4 #hyperglycemia - -check a1c in am VTE PPx: low risk, ambulation pt's mother updated extensively via phone Admission and Anticipated Discharge Date Admission Date: August 06, 2025 Subjective patient lying in bed during the visit was coughing throughout the encounter and had sputum 1x feels very congested in his nose & sinuses also with ongoing sore throat he overall feels better today with improved appetite and doesn't feel as weak he called his mother during the visit and she was on FaceTime multiple questions from his mother were answered in detail we discussed using solumedrol in nellie of hydrocortisone as the former has better anti-inflammatory properties and may work better for the bronchitis portion of his illness both agreeable to switching such Review of Systems Review of Systems: gen - no fevers or chills cv - no chest tightness pulm - no dyspnea GI - no vomiting, no diarrhea Physical Exam Physical Exam: gen - looks sick but nontoxic, coughing; no distress nose - severe congestion with rhinnorhea sinuses - nontender to palpation, but overlying skin (maxillary, frontal regions) look swollen throat - MMM, tonsils 1+ b/l, no injection, no petechiae heart - RRR, s1 s2, 2/6 systolic murmur RUSB lungs - bronchospasm; hint of end-exp wheeze b/l; hint of dry rales (faint) bases; no distress abd - soft, NT, ND, BS+, no HSM ext - no edema, pulses 2+ b/l psych - a/o x 3 Results & Data Results & Data Vital Signs (Past 12 Hours) Vital Signs Temp Pulse Resp BP Pulse Ox O2 Del Method 08/07/25 11:19 Room Air 08/07/25 11:01 71 18 95 Room Air 08/07/25 10:30 93 Room Air 08/07/25 07:20 36.6 C 76 18 138/66 96 Nebulizer 08/07/25 07:20 73 18 96 Room Air Laboratory Results Laboratory Results - last 24 hr 08/07/25 08:34 EBV Capsid Ag IgG Ab Negative EBV Caps Ag IgG Sig Str < 10.0 EBV Capsid Ag IgM Ab Negative EBV Caps Ag IgM Sig Str < 10.0 EBV Early Antigen IgG Negative EBV EA Signal Strength < 5.0 EBV Nuclear Antigen Ab Negative EBV Nucl Ag IgG Sig Str < 3.0 EBV Interpretation See Comment Diagnostic Findings Chest X-Ray 08/07/25 14:57 Chest x-ray, 2 views History: chest pain Comparison: None Technique: 2 views of the chest, PA and lateral Findings: The lungs are clear. The cardiomediastinal silhouette is within normal limits. No pleural effusion or pneumothorax. The heart size appears normal. No bony or soft tissue abnormality. Impression: Normal chest x-ray Electronically signed by Cesar Noyola 08-07-2025 4:17 PM PG Care Time/CCT Total # of Minutes Spent Total Time Spent with Patient: Total time spent is greater than 50% in coordination of care (as documented) at patient's floor/unit and/or counseling patient: Coding Level of Care Code 69808 SUB INP/OBS CARE 3/50MIN Diagnoses Influenza J11.1 Adrenal insufficiency E27.40 Acute viral bronchiolitis J21.8; B97.89 IgA deficiency D80.2 Sinusitis J32.9 Murmur R01.1
[2025-08-07] MEDS: AZELASTINE HCL 0.1% NASAL 200 SPRAYS/27,400 MCG BTL SCH (16:15)
--- NOTE | 2025-08-07 16:17 | XRay Report ---
Chest x-ray, 2 views History: chest pain Comparison: None Technique: 2 views of the chest, PA and lateral Findings: The lungs are clear. The cardiomediastinal silhouette is within normal limits. No pleural effusion or pneumothorax. The heart size appears normal. No bony or soft tissue abnormality. Impression: Normal chest x-ray Electronically signed by Cesar Noyola 08-07-2025 4:17 PM
--- NOTE | 2025-08-07 16:51 | XCELERA ---
[id number]
[2025-08-07] MEDS: CEFDINIR 300 MG CAP PO STA (18:29)
[2025-08-07] MEDS ORDERED: OXYMETAZOLINE 0.05% 30 ML BTL PRN (19:16)
[2025-08-07] MEDS ORDERED: SODIUM CHLORIDE 0.65% NA SOLN 45 ML (OCEAN) PRN (19:17)
[2025-08-08 07:28] LABS: Hematocrit (blood only) 41.9 % (42.0-52.0); Hemoglobin 13.4 g/dl (14.0-18.0); Immature Granulocytes # (auto) 0.58 K/uL (0.01-0.20); Immature Granulocytes % (auto) 4.6 %; Mean Corpuscular Hemoglobin 26.3 pg (25.0-34.0); Mean Corpuscular Volume 82.2 fL (80.0-100.0); Platelet Count 263 K/uL (130-400); RDW Standard Deviation 38.4 fL (36.4-46.3); Red Blood Count 5.10 M/uL (4.70-6.10); White Blood Count 12.55 K/ul (4.8-10.8)
[2025-08-08 07:45] LABS: Anion Gap 8.0 (3-11); Blood Urea Nitrogen 11.0 mg/dl (6-23); Calcium 9.3 mg/dl (8.6-10.3); Carbon Dioxide 29.0 mmol/L (21-32); Chloride 103.0 mmol/L (98-107); Creatinine Clr Calc Pharmacy 176.2 ml/min; Glucose 131.0 mg/dl (70-99(Fasting)); Potassium 4.0 mmol/L (3.5-5.1); Sodium 140.0 mmol/L (136-145)
[2025-08-08 08:00] LABS: Thyroid Stimulating Hormone 0.151 uIu/ml (0.300-4.500)
[2025-08-08] MEDS: IVABRADINE HCL 5 MG PO SCH (08:01)
[2025-08-08] MEDS: CEFDINIR 300 MG CAP PO SCH (08:30)
[2025-08-08] MEDS ORDERED: NON-FORMULARY PATIENT'S OWN MED ONE (09:11)
[2025-08-08 09:31] LABS: T4 Free Thyroxine 0.74 ng/dl (0.61-1.60)
[2025-08-08 09:54] LABS: Hemoglobin A1C 5.8 % (4.5-5.6)
--- NOTE | 2025-08-08 12:28 | Hospitalist Progress Note ---
Date of Service August 08, 2025 Assessment & Plan (1) Influenza: (2) Adrenal insufficiency: (3) Acute viral bronchiolitis: (4) IgA deficiency: (5) Sinusitis: (6) Murmur: Plan 19yo male with recently diagnosed influenza A, adrenal insufficiency, mild IgA deficiency, POTS, mast cell activation syndrome, Klinefelter syndrome, anxiety, depression, and mild cerebral palsy affecting his left foot/ankle. Ongoing illness x 3-4 weeksinitially sinusitis and completed Augmentin course. A few days after finishing his antibiotic he developed flulike symptoms. Last week he tested positive for influenza A at urgent care and completed a course of Tamiflu. Presented to the ER with refractory cough, congestion, and concern for adrenal crisis. #Influenza A with resulting acute bronchitis - - tested + over a week ago; s/p 5 day course of Tamiflu - CXR on admission with peribronchial thickening consistent with viral bronchiolitis or reactive airway disease. No pneumonia seen -repeated a 2-view cxr - still no complicating bacterial pneumonia - cont Mucinex 1200 mg twice daily, Hycodan 5 mL Q6h PRN cough - DuoNebs Q4R - he does have a h/o exercise-induced asthma and with ongoing severe bronchospasm/wheezing/cough reasonable to continue dedicated steroids for bronchitis -dexamethasone & solumedrol have better anti-inflammatory properties than hydrocortisone thus switched latter to solumedrol 30mg BID -the solumedrol provides suitable Rx for his adrenal insufficiency -his bronchitis symptoms are improved today #Adrenal Insufficiency - - S/p hydrocortisone 100 mg IV bolus and 1 L NSS bolus in ED at presentation - received IV hydrocortisone stress doses for the first 24 hours - then changed to IV solumedrol as above - ultimately will transition back to his usual doses of hydrocortisone 17.5 mg QAM and 7.5 mg in afternoon down the line - dehydration resolved, and now eating well once again #Anxiety/depressioncontinue fluvoxamine 100 mg daily #POTScontinue Ivabradine 5 mg daily #Vitamin D deficiencycontinue cholecalciferol 120 mcg MWF #Iron deficiencycontinue ferrous sulfate 325 mg MWF #Mast cell activation syndromecontinue ketotifen 1 mg QAM and 2 mg QHS, Pepcid BID #Klinefelter syndromecontinue weekly testosterone injections - will need such tomorrow (100mg) #murmur - -flow murmur as his echo shows normal valve function and structurally normal heart #probable sinusitis - -3-4 weeks of severe nasal/sinus congestion -completed a 7-day course of augmentin about 2 weeks ago -reasonable to re-treat --> omnicef 300mg BID x 10 days -astelin 2 sprays/nostril BID -afrin prn -await sputum cx #elevated BP w/o dx of HTN - -nearly all BPs have been high since presentation -given his age worrisome for secondary causes of HTN -could be due to stress of illness, steroids, anxiety, etc as well -[id number] this bears watching -checked TSH/FT4 --> TSH mildly low, but FT4 wnl (sick euthyroid) -fam hx renal artery stenosis --> obtain renal artery dopplers -should f/u with nephrology or cardiology for more w/u for this issue #hyperglycemia - -Hba1c 5.8% c/w pre-DM --> made patient and his mother aware of such -he follows with endocrinology at [facility] in [place] VTE PPx: low risk, ambulation pt's mother updated extensively via phone at bedside today Admission and Anticipated Discharge Date Admission Date: August 06, 2025 Subjective feels better today can take deeper breaths appetite is good no dyspnea had nosebleed yesterday but none since has h/o frequent nosebleeds and has seen ENT in the past for such we discussed his a1c - 5.8% discussed elevated BPs - his mother mentions that his BPs have been running somewhat high for a couple of years Review of Systems Review of Systems: gen - no fevers, no chills cv - no chest tightness GI - no vomiting, no diarrhea pulm - ongoing sputum production Physical Exam Physical Exam: gen - looks better today; still coughing, but cough is not has harsh today nose - severe congestion with rhinnorhea mildly improved; dried old blood R nare sinuses - maxillary, frontal region swelling is better throat - MMM, tonsils 1+ b/l, no injection, no petechiae heart - RRR, s1 s2, 1-2/6 systolic murmur RUSB lungs - improved airation, minimal dry rales bases, no wheezes today (only mild end-exp wheeze when he coughs) abd - soft, NT, ND, BS+, no HSM ext - no edema, pulses 2+ b/l psych - a/o x 3 Results & Data Results & Data Vital Signs (Past 12 Hours) Vital Signs Temp Pulse Resp BP Pulse Ox O2 Del Method 08/08/25 11:24 110 H 18 95 Room Air 08/08/25 08:30 Room Air 08/08/25 07:43 72 16 96 Room Air 08/08/25 07:02 36.1 C L 74 18 157/68 H 94 Room Air 08/08/25 03:19 64 16 94 Room Air Laboratory Results Laboratory Results - last 24 hr 08/08/25 06:36 WBC 12.55 H RBC 5.10 Hgb 13.4 L Hct 41.9 L MCV 82.2 MCH 26.3 MCHC 32.0 RDW Std Deviation 38.4 RDW Coeff of Josué 12.9 Plt Count 263 MPV 10.7 Immature Gran % (Auto) 4.6 Neut % (Auto) 78.7 Lymph % (Auto) 10.6 [place] % (Auto) 5.8 Eos % (Auto) 0.0 Baso % (Auto) 0.3 Neut # (Auto) 9.87 H Lymph # (Auto) 1.33 [place] # (Auto) 0.73 H Eos # (Auto) 0.00 Baso # (Auto) 0.04 Immature Gran # (Auto) 0.58 H Sodium 140 Potassium 4.0 Chloride 103 Carbon Dioxide 29 Anion Gap 8 BUN 11 Creatinine 0.85 Est Cr Clr Drug Dosing 176.2 eGFR 128.37 BUN/Creatinine Ratio 12.9 Glucose 131 H Estimat Average Glucose 120 Hemoglobin A1c 5.8 H Calcium 9.3 TSH 0.151 L Free T4 0.74 Diagnostic Findings Echo - normal EF normal valve function no pericardial effusion PG Care Time/CCT Total # of Minutes Spent Total Time Spent with Patient: Total time spent is greater than 50% in coordination of care (as documented) at patient's floor/unit and/or counseling patient: Coding Level of Care Code 83795 SUB INP/OBS CARE 3/50MIN Diagnoses Influenza J11.1 Adrenal insufficiency E27.40 Acute viral bronchiolitis J21.8; B97.89 IgA deficiency D80.2 Sinusitis J32.9 Murmur R01.1
[2025-08-08] MEDS: XYOSTED SC ONE (12:32)
--- NOTE | 2025-08-08 22:40 | Ultrasound Report ---
Exam(s): US DOPPLER RENAL ARTERY EXAM: US Duplex Arterial/Venous of the Kidneys, Complete CLINICAL HISTORY: Reason for exam: fam hx renal artery stenosis; elevated BPs. TECHNIQUE: Real-time duplex ultrasound scan of the kidneys integrating B-mode two- dimensional vascular structure, Doppler spectral analysis and color flow Doppler imaging. COMPARISON: No relevant prior studies available. FINDINGS: Aorta: Unremarkable as visualized. Normal abdominal aorta. Peak systolic velocity of 310 cm/s. Right renal arteries: Peak systolic velocity of 120 cm/s. Resistive indices at 0.680.71. No occlusion or significant stenosis on color flow and spectral Doppler imaging. Normal waveform. Left renal arteries: Peak systolic velocity 121 cm/s. Resistive index of 0.72.. No occlusion or significant stenosis on color flow and spectral Doppler imaging. Normal waveform. Renal veins: Unremarkable. The renal veins are patent bilaterally. Right kidney: 10.7 cm in length. Unremarkable as visualized. No hydronephrosis. Left kidney: 10.7 cm in length. Unremarkable as visualized. No hydronephrosis. IMPRESSION: Negative duplex renal ultrasound. Electronically signed by: Jay Mcduffie MD 08/08/25 22:39 PM
[2025-08-09 07:52] VITALS: BP 143/76; TEMP 97.9
--- NOTE | 2025-08-09 10:29 | Discharge Summary ---
Discharge Summary Date of Service August 09, 2025 Principal Dx & Hospital Course #1 = Principal Diagnosis (1) Influenza: (2) Adrenal insufficiency: (3) Acute viral bronchiolitis: (4) IgA deficiency: (5) Sinusitis: (6) Murmur: Plan 19yo male with recently diagnosed influenza A, adrenal insufficiency, mild IgA deficiency, POTS, mast cell activation syndrome, Klinefelter syndrome, anxiety, depression, and mild cerebral palsy affecting his left foot/ankle. Ongoing illness x 3-4 weeksinitially sinusitis and completed Augmentin course. A few days after finishing his antibiotic he developed flulike symptoms. Last week he tested positive for influenza A at urgent care and completed a course of Tamiflu. Presented to the ER with refractory cough, congestion, and concern for adrenal crisis. #Influenza A/Bronchitis/Sinusitis - improving Tested + ~ 1 week [employer] & completed 5 day course of Tamiflu. Sputum culture prelim + for H. influenzae. --> discharge on 10 day course of Cefdinir twice daily. CBC w/ mild leukocytosis secondary to steroid use; BMP stable. CXR: Peribronchial thickening consistent w/ viral bronchiolitis or reactive airway disease. CXR negative for pneumonia x 2 08/06 & 08/07 Continue Duonebs on dc - script for nebulizer signed & given to patient Prednisone taper on dc for 5 days --> can then resume home Hydrocortisone dosing. #Adrenal Insufficiency s/p hydrocortisone 100mg IV bolus + 1L NSS bolus in ED on arrival. s/p stress dose of IV hydrocortisone for 1st 24 hours --> then transitioned to 30mg IV Solumedrol BID. Sent home on steroid taper as above w/ recommendations to hold hydrocortisone until complete with taper then resume at typical dosing. Can continue to follow w/ his senior web architect at home. #Elevated BP w/o dx of HTN Could be secondary to stres of illness, steroids, anxiety etc. TSH mildly low but FT4 WNL - sick euthyroid - recheck in 4-6 weeks outpatient. Renal artery duplex negative for stenosis. Continue to monitor at home. Follow up w/ PCP for further recommendations on anti-hypertensive agents after illness resolves. #Murmur Meagher on exam Echo: EF > 70%; no significant valvular abnormalities. #Hyperglycemia A1c 5.8% Follows w/ Endocrinology @ [facility] - continue to follow up on dc #Anxiety/depressioncontinue fluvoxamine 100 mg daily #POTScontinue Ivabradine 5 mg daily #Vitamin D deficiencycontinue cholecalciferol 120 mcg MWF #Iron deficiencycontinue ferrous sulfate 325 mg MWF #Mast cell activation syndromecontinue ketotifen 1 mg QAM and 2 mg QHS, Pepcid BID #Klinefelter syndromecontinue weekly testosterone injections Discussed w/ mother @ bedside 08/09 Discharged to home 08/09 Admission HPI Per Admitting Provider Hernan is a pleasant 19-year-old male with past medical history of recently diagnosed influenza, adrenal insufficiency, IgA deficiency, POTS, mast cell acti vation syndrome, Klinefelter syndrome, anxiety, depression, and mild cerebral palsy affecting his left foot/ankle. He presented from home with persistent flulike symptoms. At the time of my exam, the patient was lying in bed in no acute distress with his mom present in the room. History is obtained from both patient and his mother. He has had an ongoing illness x 3-4 weeks. Originally started with sinusitis and he completed a course of Augmentin. A few days after finishing this antibiotic, he developed flulike symptoms. He tested positive for influenza A at urgent care last week and has since finished his course of Tamiflu. He presented to the ED on 08/03 with cough and vomiting and was discharged home with recommendation to continue his stress dose steroids, course of Tamiflu, and was prescribed Hycodan to prevent posttussive emesis. Since being discharged from the ED, he has not had any further fever/chills/vomiting. He has been sleeping a lot and reports an improvement with the Hycodan cough syrup - finally has been able to get some sleep. He has ongoing generalized malaise, sore throat, and mild intermittent nausea. His cough was initially dry, but is now intermittently productive with white/yellow sputum. He denies any dyspnea, chest pain, intercostal tenderness, diarrhea, urinary symptoms, joint/body aches. He returned to urgent care today given ongoing symptoms. He had a low normal oxygen saturation of 90% with ambulation and 91-92% at rest so he was referred to the ED. Vitals on admission significant for hypertension with BP 177/95 and mild bradycardia with HR 55; vitals otherwise stable. Labs on admission are significant for mild leukocytosis of 11.25 with neutrophil predominance. Procalcitonin negative at 0.03. Hemoglobin WNL. Electrolytes WN L. Renal function WNL. Liver enzymes WNL. UA negative. CXR on admission reveals peribronchial thickening consistent with viral bronchiolitis or reactive airway disease. No pneumonia seen. We discussed code status, patient wishes to be a full code. Discharge Exam General: NAD, VS as above Resp: normal respiratory effort, lungs clear to auscultation CV: RRR Abd: normal bowel sounds, non tender, no hepatosplenomegaly Extremities: Moves all extremities, no edema Neuro: A&O x3 Skin: intact, no lesions noted Discharge Plan Discharge Items Patient Disposition: Home - Self-Care Reason For Visit: FLU, ADRENAL INSUFF Discharge Diagnosis: Bronchitis, Flu A Condition on Discharge: Fair Activity: Resume your previous activity Non-emergency contact: Primary Care Provider Call non-emergency contact if: you have any medication questions, your symptoms worsen and you have a fever Follow-up/Referrals: Romel Zhou MD [Primary Care Provider] - (PATIENT WILL MAKE HER OWN PCP HOSPITAL FOLLOW UP IN 7-10 DAYS.) Diet: Regular Addtl Attending Provider Instructions: Mr. Oviedo, You were recently hospitalized for an ongoing illness and were found to have Flu A plus bronchitis. Your medication list has been reviewed and reconciled upon discharge to ensure accuracy and continuity of care. An updated list of all your medications is included with your hospital discharge paperwork. Please review this list closely, and make note of any changes. Medications sent upon discharge: Cefdinir 300mg twice daily for 10 days. - Your first dose will be this evening, 08/09. - Please take with food to avoid GI upset. Given that you have been on antibiotics for an extended time, obtaining a generic probiotic over the counter at the pharmacy will be helpful in replenishing good bacteria into your gut. Prednisone taper for 5 days - Please take this as prescribed, first dose being tomorrow, 08/10 in the AM. Please hold your hydrocortisone while on this medication. You will resume your typical hydrocortisone dosing when the taper has finished. Hycodan cough syrup as needed every 6 hours was sent to the pharmacy on 08/03/2025. - Please continue to use this every 6 hours as needed. Duoneb nebulizer treatments scheduled every 4 hours. Overtime, please start to spread out your breathing treatments when you start to feel better. The nebulizer may be picked up at a medical equipment facility of your choice. Another option is to purchase one on [employer] if needed as well. Take your medications as instructed; do not skip a dose of your medicines. Make sure all of your doctors know every medicine you are taking (including sxrd-lii-fnkfcgi medicines, vitamins, and supplements). Call your primary care provider before taking any new medicines (including over- the-counter medicines, vitamins, and supplements), because some of these may interact with your current medications, or may make your symptoms worse. Tell your primary care provider if you cannot afford your medications. Activity: You can do normal everyday activities as your body allows. Take rest breaks if you feel tired. Do not overexert. Stop activity if you have pain, shortness of breath or feel dizzy. Follow-up appointments: Make an appointment with your primary care physician within one week of discharge. A copy of this summary will be sent to them. Every time you see your primary care physician, or any other doctor, bring your medication list, and a list of questions. CONTACT YOUR PRIMARY CARE PROVIDER if you experience any of the following: Shortness of breath or difficulty breathing Fevers or chills Feeling tired with normal activity or experiencing dizziness or fainting Difficulty following your treatment plan, or difficulty taking medications CALL 911 OR GO TO THE EMERGENCY DEPARTMENT if you experience any of the following: Severe abdominal pain or nausea/vomiting Severe chest pain, or chest pain that radiates (moves) to your jaw or arm Sudden, severe shortness of breath or difficulty breathing Thank you for allowing us to participate in your care. Pending Studies at Discharge: Yes Studies:: Final results of sputum culture. Stand-Alone Forms: My scrible, Work/School Release, Smoking Cessation Medications and DC Order Prescriptions: New ipratropium-albuterol 0.5 mg-3 mg(2.5 mg base)/3 mL Solution For Nebulization 3 ml NEB Q4R Qty: 180 0RF cefdinir 300 mg Capsule 300 mg PO BID Qty: 20 0RF prednisone 10 mg tablet 10 mg PO DIRECTED Qty: 16 0RF Rx Instructions: Please take 4 tablets for two days followed by 3 tablets for two days followed by 2 tablets for 1 day. Continued trazodone 50 mg Tablet 50 mg PO HS PRN (Reason: Sleep) methylphenidate HCl 20 mg tablet 15 mg PO BID Rx Instructions: QAM & MID DAY ondansetron 8 mg Tablet,Disintegrating 8 mg PO DIRECTED PRN (Reason: NAUSEA/VOMITING) Rx Instructions: ALTERNATE WITH GRANISETRON FOR NAUSEA hydrocortisone sod succinate [Solu-Cortef] 100 mg Recon Soln 100 mg IM DAILY PRN (Reason: IF UNABLE TO TAKE STRESS DOSE, GO TO ER) fluvoxamine 100 mg tablet 100 mg PO QAM hydrocortisone 20 mg Tablet 30 mg PO Q8H PRN (Reason: STRESS DOSE) Rx Instructions: STRESS DOSE FOR VOMITING, FEVER, SEVERE INJURY/FRACTURE, SURGERY finasteride 1 mg Tablet 1 mg PO HS oxymetazoline [Afrin (oxymetazoline)] 0.05 % [place]ountain,Non-Aerosol 2 - 4 spray INTRANASAL DIRECTED PRN (Reason: NOSE BLEEDS) Rx Instructions: APPLY CLIP AFTER cholecalciferol (vitamin D3) [Vitamin D3] 125 mcg (5,000 unit) Tablet 125 mcg PO 3XWK Rx Instructions: SAT, WED, & FRI WITH LUNCH ivabradine 5 mg tablet 5 mg PO QAM Vitron-C 65 mg iron- 125 mg Tablet,Delayed Release (Dr/Ec) 1 tab PO 3XWK Rx Instructions: SAT, WED, & FRI AT HS. biotin 5,000 mcg Tablet,Disintegrating 5,000 mcg PO QDL Xyosted 100 mg/0.5 mL Auto-Injector 100 mg SUBCUT WK Rx Instructions: SUNDAYS Ketotifen Capsule 1 mg PO DIRECTED Rx Instructions: TAKES 1 MG QAM, THEN 2 MG QHS. Vessel Health Guard 1 tab PO 2XWK Rx Instructions: & WITH LUNCH hydrocodone-homatropine [Hycodan] 5-1.5 mg/5 mL (5 mL) solution 5 ml PO Q6H PRN (Reason: cough) Qty: 200 0RF famotidine 20 mg tablet 20 mg PO BID Held hydrocortisone 10 mg tablet 0 mg PO DIRECTED Hold Instructions: Resume on 08/15/25. until finished with prednisone taper Rx Instructions: TAKES 17.5 MG QAM, THEN 7.5 MG MID DAY Discontinued oseltamivir 75 mg capsule 75 mg PO BID Rx Instructions: STARTED 07/30/25 FOR 5 DAYS Discharge Orders: Discharge Order (Routine); Ordered 08/09/25 Ordered By: Luanne Morton/Other Patient Handouts: The Flu (Influenza) Admission Data Admit Date/Time: 08/06/25 16:55 Attending Provider: Ming Aj Admit Provider: Ming Aj Primary Care Provider: Romel Zhou Other Providers: Ming Aj Other Interventions: Discharge Summary Assessment (RN) Last Done: 08/09/25 10:43 Hospital Stay Data Consultations 08/06/25 15:05 ED Decision to Admit Stat Diagnostic Imagining Performed 08/08/25 12:26 US duplex renal art/vein BI Routine Pending Results Patient Have Any Pending Studies at Discharge: Yes Discharge Instructions Given to Patient (Per Discharging Provider) Mr. Oviedo, Nam were recently hospitalized for an ongoing illness and were found to have Flu A plus bronchitis. Your medication list has been reviewed and reconciled upon discharge to ensure accuracy and continuity of care. An updated list of all your medications is included with your hospital discharge paperwork. Please review this list closely, and make note of any changes. Medications sent upon discharge: Cefdinir 300mg twice daily for 10 days. - Your first dose will be this evening, 08/09. - Please take with food to avoid GI upset. Given that you have been on antibiotics for an extended time, obtaining a generic probiotic over the counter at the pharmacy will be helpful in replenishing good bacteria into your gut. Prednisone taper for 5 days - Please take this as prescribed, first dose being tomorrow, 08/10 in the AM. Please hold your hydrocortisone while on this medication. You will resume your typical hydrocortisone dosing when the taper has finished. Hycodan cough syrup as needed every 6 hours was sent to the pharmacy on 08/03/2025. - Please continue to use this every 6 hours as needed. Duoneb nebulizer treatments scheduled every 4 hours. Overtime, please start to spread out your breathing treatments when you start to feel better. The nebulizer may be picked up at a medical equipment facility of your choice. Another option is to purchase one on [employer] if needed as well. Take your medications as instructed; do not skip a dose of your medicines. Make sure all of your doctors know every medicine you are taking (including vmvr-vab-qupsahc medicines, vitamins, and supplements). Call your primary care provider before taking any new medicines (including over- the-counter medicines, vitamins, and supplements), because some of these may interact with your current medications, or may make your symptoms worse. Tell your primary care provider if you cannot afford your medications. Activity: You can do normal everyday activities as your body allows. Take rest breaks if you feel tired. Do not overexert. Stop activity if you have pain, shortness of breath or feel dizzy. Follow-up appointments: Make an appointment with your primary care physician within one week of discharge. A copy of this summary will be sent to them. Every time you see your primary care physician, or any other doctor, bring your medication list, and a list of questions. CONTACT YOUR PRIMARY CARE PROVIDER if you experience any of the following: Shortness of breath or difficulty breathing Fevers or chills Feeling tired with normal activity or experiencing dizziness or fainting Difficulty following your treatment plan, or difficulty taking medications CALL 911 OR GO TO THE EMERGENCY DEPARTMENT if you experience any of the following: Severe abdominal pain or nausea/vomiting Severe chest pain, or chest pain that radiates (moves) to your jaw or arm Sudden, severe shortness of breath or difficulty breathing Thank you for allowing us to participate in your care. Total Time Total Time Spent Total Time Spent (In Minutes): 45 Total Time Includes: Examination of the Patient, Discharge Planning, Medication Reconciliation and Other Coding Level of Care Code 19422 INP/OBS DISCH >30 MIN Diagnoses Influenza J11.1 Adrenal insufficiency E27.40 Acute viral bronchiolitis J21.8; B97.89 IgA deficiency D80.2 Sinusitis J32.9 Murmur R01.1
[2025-08-09 12:28] VITALS: PULSE 95; RESP 16; O2SAT 95
== END 2025-08-09 13:12 | disposition home or self-care (01) | DRG 194 ==
LOC: ED 11:34 → EDINP 16:55 → 3W 19:46